=== PATIENT | female | born 1980 | race Caucasian/White ===

== ENCOUNTER 2023-01-04 10:04 | Emergency (ER) | payer SELFPAY | END 2023-01-04 10:53 | disposition home or self-care (01) | LOC: ERS 10:04 | DX: S93.402A Sprain of unspecified ligament of left ankle, initial encounter (principal); F17.210 Nicotine dependence, cigarettes, uncomplicated; W18.49XA Other slipping, tripping and stumbling without falling, initial encounter ==

== ENCOUNTER → 2023-08-20 10:12 | Emergency (ER) | payer SELFPAY | END | disposition home or self-care (01) | LOC: ERS 10:12 | DX: K08.89 Other specified disorders of teeth and supporting structures (principal); F17.210 Nicotine dependence, cigarettes, uncomplicated | CPT/HCPCS: 99282 ==